=== PATIENT | male | born 1970 | race Asian ===

== ENCOUNTER 2020-11-27 00:44 | Emergency (ER) | payer BC ==
[~2020-11-27] VITALS: Ht 165.1 cm; Wt 70.3 kg
[2020-11-27 00:47] VITALS: BP 131/94
--- NOTE | 2020-11-27 00:50 | NUR ---
PATIENT SENT TO [facility]
[2020-11-27] MEDS ORDERED: AMOXIL/CLAVULANATE 875/125 MG 1 TAB PO ONE (01:10)
[2020-11-27] MEDS ORDERED: AMOX-1000 PO (01:23)
--- NOTE | 2020-11-27 01:36 | NUR ---
d/c with [facility]. d/c education given. opportunity to ask questions given and answered. no rx given.
== END 2020-11-27 01:36 | disposition home or self-care (01) ==
LOC: MED 00:44
DX: S81.851A Open bite, right lower leg, initial encounter (principal); W54.0XXA Bitten by dog, initial encounter; Y93.89 Activity, other specified; Y92.89 Other specified places as the place of occurrence of the external cause; Y99.8 Other external cause status
CPT/HCPCS: 90471; 90715; 99283